=== PATIENT | female | born 1955 | race African-American/Black ===

== ENCOUNTER 2018-05-27 20:12 | Inpatient (IN) | payer MEDICAID ==
[2018-05-27] VITALS (15 sets, daily range): O2SAT 69–100
[~2018-05-27] VITALS: Ht 172.7 cm; Wt 81.0 kg
[2018-05-27 21:29] LABS: BASO # 0.1 (0.0-0.2); BASO % 0.8 % (0.0-2.0); EOS # 0.1 (0.0-0.7); EOS % 1.3 % (0-4.0); GRAN # 6.2 (1.4-6.5); GRAN % 67.6 % (42.2-75.2); HEMOGLOBIN 11.4 g/dl (12.5-16.0); LYMPH # 1.7 (1.2-3.4); LYMPH % 18.4 % (20.0-51.0); MEAN CELL VOLUME 87 fl (80.0-100.0); MEAN CORPUSCULAR HEMOGLOBIN 28 pg (27.0-31.0); MEAN CORPUSCULAR HGB CONC 32 g/dl (33.0-37.0); MEAN PLATELET VOLUME 11.7 fl (7.4-10.4); MONO # 1.1 (0.1-0.6); MONO % 11.4 % (1.7-9.3); PLATELET COUNT 183 K/mm3 (130-400); RED BLOOD COUNT 4.14 M/mm3 (4.10-5.30); REDCELL DISTRIBUTION WIDTH-CV 14.4 % (11.5-14.5)
[2018-05-27] MEDS ORDERED: NEURONTIN100 MG/CAP PO (21:32)
[2018-05-27] MEDS ORDERED: PEPCID 20MG TAB20 MG PO (21:32)
[2018-05-27 21:33] LABS: INR 1.2 (0.8-3.0); PROTHROMBIN TIME 13.1 SECONDS (9.7-12.8)
[2018-05-27] MEDS ORDERED: MACROBID 1100 MG/CAP PO (21:33)
[2018-05-27 21:34] LABS: HEMATOCRIT 36.1 % (37.0-47.0)
[2018-05-27] MEDS ORDERED: MYFORTIC180 MG PO (21:35)
[2018-05-27] MEDS ORDERED: PROGRAF 0.5MG0.5 MG PO (21:35)
[2018-05-27] MEDS ORDERED: ALDACTONE50 MG PO (21:35)
[2018-05-27 21:36] LABS: PARTIAL THROMBOPLASTIN TIME 31.1 SECONDS (26.0-37.0)
[2018-05-27] MEDS ORDERED: LOPRESSOR100 MG PO (21:36)
[2018-05-27] MEDS ORDERED: ZYRTEC 10MG10 MG PO (21:37)
[2018-05-27 21:39] LABS: ALBUMIN 3.5 gm/dL (3.5-5.0); BILIRUBIN,TOTAL 1.2 mg/dL (0.0-1.0); C-REACTIVE PROTEIN 0.8 mg/dL (0.0-0.9); CALCIUM 9.7 mg/dL (8.4-10.2); CREATININE, serum 1.65 mg/dL (0.52-1.25); POTASSIUM 4.7 mmol/L (3.4-5.0); TOTAL PROTEIN 7.6 gm/dL (6.4-8.2)
[2018-05-27 21:57] LABS: TROPONIN-I 0.037 ng/mL (0.000-0.035)
[2018-05-27 22:48] LABS: COLLECTION METHOD CLEAN CATCH
[2018-05-27 22:55] LABS: HYALINE CAST >12 /lpf; MUCOUS Present /lpf; PH 5 (5-8); URINE APPEARANCE Hazy; URINE BACTERIA Rare /hpf; URINE BILIRUBIN Negative (NEGATIVE); URINE BLOOD Negative (NEGATIVE); URINE COLOR Amber; URINE GLUCOSE 1+ (NEGATIVE); URINE KETONE Negative (NEGATIVE); URINE LEUKOCYTE ESTERASE Negative (NEGATIVE); URINE NITRATE Negative (NEGATIVE); URINE PROTEIN(semi-quant) 1+ (NEGATIVE); URINE RBC 0-2 /hpf; URINE UROBILINOGEN >=4.0 mg/dL (NEGATIVE)
--- NOTE | 2018-05-27 23:05 | NUR ---
RECEIVED REPORT VIA PHONE FROM GUS MARTINEZ.
--- NOTE | 2018-05-27 23:35 | NUR ---
PT ARRIVED IN UNIT VIA STRETCHER, ALERT AND ORIENTED X 4, ON ROOM AIR AND ABLE TO WALK FROM STRETCHER TO BED. PT ORIENTED TO ROOM, VISITATION POLICY AND HOW TO ORDER FOOD. PT DENIES PAIN AT THIS TIME, VS STABLE.
[2018-05-28] VITALS (369 sets, daily range): BP systolic 74–116; BP diastolic 39–67; PULSE 59–75; TEMP 98.2–98.7; O2SAT 69–100
[2018-05-28 02:14] LABS: TROPONIN-I 3 HR POST INITIAL 0.025 ng/mL (0.000-0.034)
[2018-05-28 02:33] LABS: TSH w REFLEX 0.831 uIU/mL (0.465-4.680)
[2018-05-28 03:09] LABS: BILIRUBIN,TOTAL 1.2 mg/dL (0.0-1.0); CALCIUM 8.9 mg/dL (8.4-10.2); CREATININE, serum 1.44 mg/dL (0.52-1.25); POTASSIUM 4.8 mmol/L (3.4-5.0); TOTAL PROTEIN 6.5 gm/dL (6.4-8.2)
[2018-05-28 04:46] LABS: BASO # 0.1 (0.0-0.2); BASO % 0.8 % (0.0-2.0); EOS # 0.1 (0.0-0.7); EOS % 1.5 % (0-4.0); GRAN % 60.7 % (42.2-75.2); LYMPH # 1.5 (1.2-3.4); LYMPH % 23.5 % (20.0-51.0); MEAN CELL VOLUME 89 fl (80.0-100.0); MEAN CORPUSCULAR HGB CONC 31 g/dl (33.0-37.0); MEAN PLATELET VOLUME 11.3 fl (7.4-10.4); MONO # 0.9 (0.1-0.6); MONO % 13.2 % (1.7-9.3); PLATELET COUNT 120 K/mm3 (130-400); RED BLOOD COUNT 3.56 M/mm3 (4.10-5.30); REDCELL DISTRIBUTION WIDTH-CV 14.5 % (11.5-14.5)
[2018-05-28 04:49] LABS: HEMATOCRIT 31.5 % (37.0-47.0); HEMOGLOBIN 9.9 g/dl (12.5-16.0); MEAN CORPUSCULAR HEMOGLOBIN 28 pg (27.0-31.0)
[2018-05-28 04:58] LABS: CALCIUM 8.7 mg/dL (8.4-10.2); CREATININE, serum 1.41 mg/dL (0.52-1.25); POTASSIUM 4.5 mmol/L (3.4-5.0)
[2018-05-28 05:08] LABS: TROPONIN-I 6 HR POST INITIAL 0.025 ng/mL (0.000-0.034)
--- NOTE | 2018-05-28 07:10 | NUR ---
REPORT GIVENT TO GUS WALKER.
--- NOTE | 2018-05-28 08:00 | NUR ---
INITIAL ASSESSMENT COMPLETED. PATIENT AWAKE AND ALERT. SHE WAS GIVEN CLEAN LINENS WELL GIVEN TOOTHBRUSH AND TOOTHPASTE. SHE WAS ABLE TO AMBULATE TO THE TOILET WITHOUT DIFFICULTY
--- NOTE | 2018-05-28 10:10 | NUR ---
DR. HOBBS AT BEDSIDE TO SEE PATIENT. HE PLANS TO START HER ON SOTOLOL AND THEN DO A LOOP RECORDER TOMORROW MORNING.
[2018-05-28] MEDS ORDERED: LANTUS100 U/ML SQ (10:56)
[2018-05-28] MEDS ORDERED: HUMALOG100 U/ML (10:57)
--- NOTE | 2018-05-28 12:11 | NUR ---
Patient lives at home with her niece in [place], [place] and plans to discharge back home with her niece upon discharge. Patient received a liver transplant in 2010 in [place], [place] and helps care for her neice's child while her niece is at work. Patient is mostly independent with daily living activities and also receives support as needed from her niece. Patient's primary care physician is Dr. Quirino Duke along with Dr. Mora at [facility], her pharmacy is unknown at this time, and she does not have advance directives on file at this time. Her niece is Osei and her contact number is [phone]. No further needs at this time and psychotherapist social worker will follow as needed.
--- NOTE | 2018-05-28 16:35 | NUR ---
PATIENT HAS BEEN SLEEPING OFF AND ON ALL DAY. SHE AMBULATES TO THE BATHROOM WITHOUT DIFFICULTY. FAMILY DID TAKE ALL MEDICATIONS HOME WITH THEM.
--- NOTE | 2018-05-28 17:00 | NUR ---
REPORT CALLED TO GUS BINGHAM ON MEDICAL. PATIENT WAS PLACED ON PORTABLE TELEMETRY AND TAKEN BY WHEELCHAIR TO ROOM 352. CALL LIGHT AND PHONE WERE GIVEN TO PATIENT. NURSE NOTIFIED OF PATIENT'S ARRIVAL.
--- NOTE | 2018-05-28 20:50 | NUR ---
Shift assessment complete. PT resting in bed, awake, a&o, cooperative c cares. Pt denies pain or any other c/o at this time. INT patent. PT s needs. Call light in reach, will monitor.
[2018-05-29 03:44] VITALS: BP 126/70; PULSE 70; TEMP 97.4
[2018-05-29 07:36] VITALS: BP 125/70; PULSE 71; TEMP 98.7
--- NOTE | 2018-05-29 09:24 | NUR ---
Pt sleeping in bed at this time; awaiting loop recorder placement. IVF infusing per orders without complication.
--- NOTE | 2018-05-29 10:31 | NUR ---
Loop recorder placed at bedside by Dr. De Guzman. Pt able to order breakfast. Denies needs at this time.
[2018-05-29 11:15] VITALS: BP 128/63; PULSE 67; TEMP 98.2
--- NOTE | 2018-05-29 12:03 | NUR ---
Initial visit; Patient thanked Public Affairs Officer for looking in on her and offering comfort and prayer.
[2018-05-29 16:08] VITALS: BP 131/61; PULSE 72; TEMP 98.7
--- NOTE | 2018-05-29 18:17 | NUR ---
PRN tylenol given for incision pain. Novolog given per orders. Denies further needs at this time; will continue to monitor.
--- NOTE | 2018-05-29 19:04 | NUR ---
Report given to GUS Alcala. Pt resting in bed.
[2018-05-29 19:09] VITALS: BP 105/47; PULSE 70; TEMP 98.5
--- NOTE | 2018-05-29 20:30 | NUR ---
Initial shift assessment done- no requests- has been sleeping, just wants to get some rest. Dressing to loop recorder site dry and intact. Tele on-sinus. INT to left wrist.
[2018-05-30 00:46] VITALS: BP 92/45; PULSE 63; TEMP 98.1
[2018-05-30 05:00] VITALS: BP 94/50; PULSE 65; TEMP 98.4
--- NOTE | 2018-05-30 05:34 | NUR ---
Quiet night- Tylenol given for pain to loop recorder site- dressing dry and intact, VSS
[2018-05-30 06:21] LABS: BASO % 0.6 % (0.0-2.0); EOS # 0.1 (0.0-0.7); EOS % 1.2 % (0-4.0); GRAN # 3.2 (1.4-6.5); GRAN % 63.2 % (42.2-75.2); HEMOGLOBIN 11.3 g/dl (12.5-16.0); LYMPH % 20.4 % (20.0-51.0); MEAN CELL VOLUME 86 fl (80.0-100.0); MEAN CORPUSCULAR HEMOGLOBIN 28 pg (27.0-31.0); MEAN CORPUSCULAR HGB CONC 33 g/dl (33.0-37.0); MEAN PLATELET VOLUME 11.9 fl (7.4-10.4); MONO # 0.7 (0.1-0.6); MONO % 14.2 % (1.7-9.3); PLATELET COUNT 96 K/mm3 (130-400); RED BLOOD COUNT 4.04 M/mm3 (4.10-5.30); REDCELL DISTRIBUTION WIDTH-CV 14.3 % (11.5-14.5)
[2018-05-30 06:27] LABS: HEMATOCRIT 34.8 % (37.0-47.0)
[2018-05-30 07:41] VITALS: BP 138/71; PULSE 72; TEMP 98.7
[2018-05-30 07:43] LABS: BILIRUBIN,TOTAL 1.9 mg/dL (0.0-1.0); CREATININE, serum 0.86 mg/dL (0.52-1.25); TOTAL PROTEIN 6.8 gm/dL (6.4-8.2)
--- NOTE | 2018-05-30 09:22 | NUR ---
Pt resting in bed with call light within reach. INT intact to left wrist. Loop recorder incision intact to left chest, clean, dry with gauze dressing in place. Ice provided for pain. Pt states it is improved with tylenol. Denies further needs at this time; will continue to monitor.
[2018-05-30] MEDS ORDERED: CEPHALEXIN500 M1 PO (09:58)
[2018-05-30] MEDS ORDERED: XARELTO20 MG PO (09:59)
[2018-05-30] MEDS ORDERED: BETAPACE 80MG80 MG PO (09:59)
--- NOTE | 2018-05-30 11:44 | NUR ---
Reviewed all discharge medications, instructions, and follow up appointments with patient. All questions answered in depth. INT and tele removed. All belongings sent with patient, including medications. Health summary printed and sent with pt for her appointment with Dr. Talavera tomorrow. Pt denies any needs; walked out to car. Pt discharges.
== END 2018-05-30 11:45 | disposition home or self-care (01) | DRG 261 ==
LOC: COL.ER 20:12 → MEDICAL 22:50 → ICU 22:50 → MEDICAL 05-28 17:22
PROVIDERS: Emergency Medicine; Nurse Practitioner; Physician Assistant; ADMIT Hospitalist
PROC: 0JH632Z Insertion of Monitoring Device into Chest Subcutaneous Tissue and Fascia, Percutaneous Approach (ICD-10-PCS; principal; 2018-05-29)
DX: I48.92 Unspecified atrial flutter (principal); Z94.4 Liver transplant status; N17.9 Acute kidney failure, unspecified; I10 Essential (primary) hypertension; E11.649 Type 2 diabetes mellitus with hypoglycemia without coma; D64.9 Anemia, unspecified
CPT/HCPCS: 99222-AI; 99233-AI; 99239; C1764; J1650; J1815; J7030; J7040; J7507

== ENCOUNTER 2018-06-24 15:20 | Emergency (ER) | payer MEDICAID | END 2018-06-24 20:14 | disposition home or self-care (01) | LOC: COL.ER 15:20 | DX: J06.9 Acute upper respiratory infection, unspecified (principal); R10.12 Left upper quadrant pain; R11.10 Vomiting, unspecified; Z79.01 Long term (current) use of anticoagulants ==

== ENCOUNTER 2018-07-05 09:52 | Emergency (ER) | payer MEDICAID ==
[~2018-07-05] VITALS: Ht 172.7 cm; Wt 73.6 kg
[~2018-07-05 09:52] MED LIST: ALDACTONE50 MG PO; BETAPACE 80MG80 MG PO; CEPHALEXIN500 M1 PO; HUMALOG100 U/ML; LANTUS100 U/ML SQ; LOPRESSOR100 MG PO; MACROBID 1100 MG/CAP PO; MYFORTIC180 MG PO; NEURONTIN100 MG/CAP PO; PEPCID 20MG TAB20 MG PO; PHENERGAN 25 TA25 MG PO; PROGRAF 0.5MG0.5 MG PO; XARELTO20 MG PO; ZYRTEC 10MG10 MG PO
[2018-07-05 10:41] LABS: BASO % 0.2 % (0.0-2.0); EOS # 0.1 (0.0-0.7); EOS % 0.8 % (0-4.0); GRAN % 72.4 % (42.2-75.2); HEMOGLOBIN 10.5 g/dl (12.5-16.0); LYMPH # 1.6 (1.2-3.4); LYMPH % 16.4 % (20.0-51.0); MEAN CELL VOLUME 85 fl (80.0-100.0); MEAN CORPUSCULAR HEMOGLOBIN 27 pg (27.0-31.0); MEAN CORPUSCULAR HGB CONC 32 g/dl (33.0-37.0); MEAN PLATELET VOLUME 12.2 fl (7.4-10.4); MONO % 9.9 % (1.7-9.3); PLATELET COUNT 132 K/mm3 (130-400); RED BLOOD COUNT 3.84 M/mm3 (4.10-5.30); REDCELL DISTRIBUTION WIDTH-CV 13.7 % (11.5-14.5)
[2018-07-05 10:42] LABS: HEMATOCRIT 32.5 % (37.0-47.0)
[2018-07-05 10:48] LABS: PARTIAL THROMBOPLASTIN TIME 53.6 SECONDS (26.0-37.0)
[2018-07-05 10:51] LABS: INR 7.3 (0.8-3.0); PROTHROMBIN TIME 83.5 SECONDS (9.7-12.8)
[2018-07-05 11:05] LABS: LACTIC ACID 1.5 mmol/L (0.4-2.0)
[2018-07-05 11:07] LABS: ALBUMIN 3.4 gm/dL (3.5-5.0); BILIRUBIN,TOTAL 1.3 mg/dL (0.0-1.0); C-REACTIVE PROTEIN 2.4 mg/dL (0.0-0.9); CALCIUM 9.9 mg/dL (8.4-10.2); CREATININE, serum 0.87 mg/dL (0.52-1.25); POTASSIUM 4.5 mmol/L (3.4-5.0); TOTAL PROTEIN 7.6 gm/dL (6.4-8.2)
[2018-07-05 11:15] LABS: COLLECTION METHOD CLEAN CATCH
[2018-07-05 11:22] LABS: MUCOUS Present /lpf; PH 5 (5-8); URINE APPEARANCE Clear; URINE BACTERIA None Seen /hpf; URINE BILIRUBIN Negative (NEGATIVE); URINE BLOOD Negative (NEGATIVE); URINE COLOR Yellow; URINE GLUCOSE 3+ (NEGATIVE); URINE KETONE Negative (NEGATIVE); URINE LEUKOCYTE ESTERASE Negative (NEGATIVE); URINE NITRATE Negative (NEGATIVE); URINE PROTEIN(semi-quant) Negative (NEGATIVE); URINE RBC 0-2 /hpf; URINE UROBILINOGEN >=4.0 mg/dL (NEGATIVE)
[2018-07-05] MEDS ORDERED: PROGRAF 0.5MG0.5 MG PO (11:40)
[2018-07-05] MEDS ORDERED: TOPROL XL100 MG PO (11:41)
[2018-07-05] MEDS ORDERED: MACROBID 1100 MG/CAP PO (11:43)
[2018-07-05] MEDS ORDERED: TAMIFLU 75MG75 MG PO (11:52)
[2018-07-05 15:15] VITALS: BP 126/80; PULSE 68; TEMP 96.8
== END 2018-07-05 15:15 | disposition short-term general hospital (02) ==
LOC: COL.ER 09:52
PROVIDERS: Emergency Medicine
DX: K72.90 Hepatic failure, unspecified without coma (principal); D68.59 Other primary thrombophilia; R41.0 Disorientation, unspecified; E11.9 Type 2 diabetes mellitus without complications; I10 Essential (primary) hypertension; I48.92 Unspecified atrial flutter; Z79.4 Long term (current) use of insulin; Z94.4 Liver transplant status; Z90.710 Acquired absence of both cervix and uterus
CPT/HCPCS: J2270

== ENCOUNTER 2018-08-17 19:12 | Inpatient (IN) | payer MEDICAID ==
[~2018-08-17] VITALS: Ht 172.7 cm; Wt 85.8 kg
[~2018-08-17 19:12] MED LIST changes: +TAMIFLU 75MG75 MG PO; +TOPROL XL100 MG PO
[2018-08-17 20:22] LABS: BASO # 0.1 (0.0-0.2); BASO % 0.5 % (0.0-2.0); EOS # 0.1 (0.0-0.7); GRAN # 9.3 (1.4-6.5); GRAN % 68.1 % (42.2-75.2); LYMPH # 2.6 (1.2-3.4); LYMPH % 18.8 % (20.0-51.0); MEAN CELL VOLUME 88 fl (80.0-100.0); MEAN CORPUSCULAR HGB CONC 30 g/dl (33.0-37.0); MEAN PLATELET VOLUME 11.3 fl (7.4-10.4); MONO # 1.5 (0.1-0.6); MONO % 11.2 % (1.7-9.3); PLATELET COUNT 221 K/mm3 (130-400); RED BLOOD COUNT 2.18 M/mm3 (4.10-5.30); REDCELL DISTRIBUTION WIDTH-CV 14.6 % (11.5-14.5)
[2018-08-17 20:30] LABS: HEMATOCRIT 19.2 % (37.0-47.0); HEMOGLOBIN 5.8 g/dl (12.5-16.0); MEAN CORPUSCULAR HEMOGLOBIN 27 pg (27.0-31.0)
[2018-08-17 20:33] LABS: ALANINE AMINOTRANSFERASE 23 U/L (9-52); ALBUMIN 3.2 gm/dL (3.5-5.0); ALKALINE PHOSPHATASE 119 U/L (50-136); ANION GAP 10 mmol/L (7-16); AST,SGOT 40 U/L (15-37); BLOOD UREA NITROGEN 53 mg/dL (7-17); C-REACTIVE PROTEIN 0.9 mg/dL (0.0-0.9); CALCIUM 9.3 mg/dL (8.4-10.2); CARBON DIOXIDE 19 mmol/L (22-30); CHLORIDE 108 mmol/L (98-107); CREATININE, serum 1.58 (0.52-1.25); GLUCOSE 70 mg/dL (74-106); POTASSIUM 4.1 mmol/L (3.4-5.0); SODIUM 138 mmol/L (137-145); TOTAL PROTEIN 6.9 gm/dL (6.4-8.2)
[2018-08-17 20:43] LABS: TROPONIN-I < 0.012 ng/mL (0.000-0.035)
[2018-08-17 20:56] LABS: PARTIAL THROMBOPLASTIN TIME 42.2 SECONDS (26.0-37.0)
[2018-08-17] MEDS ORDERED: PEPCID 20MG TAB20 MG PO (21:13)
[2018-08-17 21:51] LABS: INR 4.4 (0.8-3.0)
[2018-08-17 21:59] LABS: PROTHROMBIN TIME 50.1 SECONDS (9.7-12.8)
--- NOTE | 2018-08-17 22:40 | NUR ---
Report called at this time from the ED by GUS Aceves. Patient will be brought over soon.
[2018-08-17 22:42] LABS: MEAN CELL VOLUME 87 fl (80.0-100.0); MEAN CORPUSCULAR HGB CONC 30 g/dl (33.0-37.0); MEAN PLATELET VOLUME 10.8 fl (7.4-10.4); PLATELET COUNT 183 K/mm3 (130-400); RED BLOOD COUNT 1.97 M/mm3 (4.10-5.30); REDCELL DISTRIBUTION WIDTH-CV 14.8 % (11.5-14.5)
[2018-08-17 22:52] LABS: HEMATOCRIT 17.2 % (37.0-47.0); HEMOGLOBIN 5.2 g/dl (12.5-16.0); MEAN CORPUSCULAR HEMOGLOBIN 26 pg (27.0-31.0)
--- NOTE | 2018-08-17 23:23 | NUR ---
Patient arrives from the ED at this time via stretcher with clothes and cell phone. Patient stands and transfers self to unit bed and is slightly unsteady. Complains of headache getting worse when she stands and feels lightheaded. Attached to monitoring equipment. Assessment complete. Patient has an audible murmur with her tachycardic heart rate, her lungs are clear with diminished bases. Patient has complaints of a 9/10 headache that is sharp and constant. She is alert and oriented. Blood consent signed. Patient now resting in bed. She is drowsy and falls asleep easily, but awakens to name. Oriented to room and unit. Call light within reach. Will continue to monitor.
[2018-08-18] VITALS (21 sets, daily range): BP systolic 83–122; BP diastolic 37–79; PULSE 81–116; TEMP 97.6–98.4; O2SAT 100
[2018-08-18] MEDS ORDERED: PROVENTIL0.09 MG/A1 IH (00:28)
[2018-08-18 04:00] LABS: HEMOGLOBIN 6.8 g/dl (12.5-16.0)
--- NOTE | 2018-08-18 04:00 | NUR ---
Patient resting in bed, sleeps frequently but is disrupted often. Patient's BP remains low, continuing transfusions. Patient has complaints of pain in her abdomen now, rated 8/10 and cramping, worse with movement. Assisted to reposition. Patient is still not able to receive pain medications at this time due to low blood pressures. Patient's heart rate has started to decrease and has been maintaining below 100. Assessment complete. No changes from previous. No further needs at this time. Will continue to monitor. Call light within reach.
[2018-08-18 05:34] LABS: BASO # 0.1 (0.0-0.2); BASO % 0.5 % (0.0-2.0); EOS # 0.1 (0.0-0.7); EOS % 0.7 % (0-4.0); GRAN # 6.6 (1.4-6.5); GRAN % 68.7 % (42.2-75.2); HEMATOCRIT 25.2 % (37.0-47.0); HEMOGLOBIN 8.2 g/dl (12.5-16.0); LYMPH # 1.9 (1.2-3.4); LYMPH % 19.4 % (20.0-51.0); MEAN CELL VOLUME 86 fl (80.0-100.0); MEAN CORPUSCULAR HEMOGLOBIN 28 pg (27.0-31.0); MEAN CORPUSCULAR HGB CONC 33 g/dl (33.0-37.0); MONO % 10.3 % (1.7-9.3); PLATELET COUNT 129 K/mm3 (130-400); RED BLOOD COUNT 2.93 M/mm3 (4.10-5.30); REDCELL DISTRIBUTION WIDTH-CV 14.1 % (11.5-14.5)
[2018-08-18 05:38] LABS: INR 3.4 (0.8-3.0); PROTHROMBIN TIME 38.3 SECONDS (9.7-12.8)
[2018-08-18 05:45] LABS: CREATININE, serum 1.43 (0.52-1.25)
[2018-08-18 05:52] LABS: POTASSIUM 6.4 mmol/L (3.4-5.0)
--- NOTE | 2018-08-18 07:18 | NUR ---
Bedside report given to GUS Mills and Peggy student nurse.
[2018-08-18 09:15] LABS: CALCIUM 8.1 mg/dL (8.4-10.2); CREATININE, serum 1.42 (0.52-1.25); POTASSIUM 4.4 mmol/L (3.4-5.0)
[2018-08-18 09:20] LABS: HEMOGLOBIN 7.8 g/dl (12.5-16.0)
--- NOTE | 2018-08-18 11:08 | NUR ---
Patient leaves for EGD in the OR at this time. Patient is transported to OR by tech. Emre
--- NOTE | 2018-08-18 12:01 | NUR ---
PATIENT RETURNS FROM OR WITH OR NURSE. PATIENT IS ALERT, ORIENTED AND VITAL SIGNS ARE STABLE. PATIENT IS NOT IN OBVIOUS PAIN OR DISCOMFORT. WILL CONTINUE TO MONITOR VITALS. PATIENT WILL REMAIN NPO UNTIL FURTHER TREATMENT PLANS ARE DISCUSSED WITH THE DOCTOR.
--- NOTE | 2018-08-18 14:16 | NUR ---
PHOENIX student met with patient to discuss discharge plan. Also present was patient's sister and brother. Patient lives in [place] with her niece (Osei). Patient's PCP is Dr. Duke and she uses the [facility]. Patient does not use any DME but needs occasional help with bathing using the restroom. Niece is able to provide assistance when available. Patient does not currently have a DPOA-HC completed but was interested in completing one while here. HPOENIX student provided and explained form. Patient designated her niece (Osei) as primary and signed. PHOENIX student placed copy in chart and returned original +3 copies to patient. Patient and patient's sister inquired about wanting home health services. PT/OT have been ordered. PHOENIX to follow PT/OT recommendations for appropiate services. PHOENIX to continue to follow.
[2018-08-18 14:57] LABS: COLLECTION METHOD CLEAN CATCH
[2018-08-18 15:07] LABS: PH 5 (5-8); SQUAMOUS EPITHELIAL 0-2 /hpf; URINE APPEARANCE Clear; URINE BACTERIA None Seen /hpf; URINE BILIRUBIN Negative (NEGATIVE); URINE BLOOD Negative (NEGATIVE); URINE COLOR Yellow; URINE GLUCOSE Negative (NEGATIVE); URINE KETONE Negative (NEGATIVE); URINE LEUKOCYTE ESTERASE Negative (NEGATIVE); URINE NITRATE Negative (NEGATIVE); URINE PROTEIN(semi-quant) Negative (NEGATIVE); URINE RBC 0-2 /hpf
--- NOTE | 2018-08-18 18:00 | NUR ---
PATIENT PROCEEDS WITH CLEAR LIQUIDS THIS AFTERNOON. SHE HAS SOME MILD NAUSEA, ZOFRAN GIVEN, AND LOWER ABDOMINAL CRAMPING. K-PAD HEATING PAD ADMINISTERED TO THE PATIENT WITH SOME REPORTS OF RELIEF. WILL CONTINUE TO MONITOR.
[2018-08-18 18:45] LABS: HEMATOCRIT 24.8 % (37.0-47.0); HEMOGLOBIN 8.1 g/dl (12.5-16.0)
--- NOTE | 2018-08-18 19:10 | NUR ---
Bedside report received from GUS Mills and Peggy student nurse
--- NOTE | 2018-08-18 20:00 | NUR ---
Assessment complete. Patient is sitting up in bed and does not appear to be in any distress. patient has complaints of her feet being itchy. Provided some lotion. assessment does not reveal any significant findings.Vitals remain stable. No further needs at this time. Will continue to monitor. Call light within reach
[2018-08-19] VITALS: BP 122/73; PULSE 75; TEMP 98.2
--- NOTE | 2018-08-19 | NUR ---
Assessment complete. Patient resting in bed after getting up to the commode. Linens changed. Patient's assessment revealed no changes from previous. Patient has no further needs at this time. States that she is very tired and just wants to sleep.
[2018-08-19 04:00] VITALS: BP 100/62; PULSE 76; TEMP 98.1
--- NOTE | 2018-08-19 04:00 | NUR ---
Patient asleep at this time. No current complaints or needs. Vitals have remained stable throughout the night. Assessment complete. No changes from previous exams. No further needs at this time. Will continue to monitor. Call light within reach
[2018-08-19 05:01] LABS: BASO % 0.7 % (0.0-2.0); EOS # 0.1 (0.0-0.7); EOS % 1.7 % (0-4.0); GRAN # 3.8 (1.4-6.5); GRAN % 63.9 % (42.2-75.2); LYMPH # 1.3 (1.2-3.4); LYMPH % 22.7 % (20.0-51.0); MEAN CELL VOLUME 87 fl (80.0-100.0); MEAN CORPUSCULAR HGB CONC 32 g/dl (33.0-37.0); MONO # 0.6 (0.1-0.6); MONO % 10.7 % (1.7-9.3); PLATELET COUNT 106 K/mm3 (130-400); RED BLOOD COUNT 2.68 M/mm3 (4.10-5.30); REDCELL DISTRIBUTION WIDTH-CV 15.6 % (11.5-14.5)
[2018-08-19 05:07] LABS: HEMATOCRIT 23.2 % (37.0-47.0); HEMOGLOBIN 7.5 g/dl (12.5-16.0); MEAN CORPUSCULAR HEMOGLOBIN 28 pg (27.0-31.0)
[2018-08-19 05:09] LABS: CALCIUM 7.8 mg/dL (8.4-10.2); CREATININE, serum 1.43 (0.52-1.25); POTASSIUM 4.7 mmol/L (3.4-5.0)
[2018-08-19 07:10] LABS: INR 1.7 (0.8-3.0); PROTHROMBIN TIME 18.9 SECONDS (9.7-12.8)
--- NOTE | 2018-08-19 07:45 | NUR ---
Bedside report received from GUS Galvez.
--- NOTE | 2018-08-19 07:45 | NUR ---
Bedside report given to GUS Neal
--- NOTE | 2018-08-19 08:00 | NUR ---
Assessment completed. Pt resting in bed, easily arousable. Denies any pain at this time. VSS. Remains on octreotide gtt at 50ml/hr and IVF. Request chicken broth for breakfast. Call light in reach. Will monitor.
[2018-08-19 08:17] VITALS: BP 115/60; PULSE 81; TEMP 98.3
--- NOTE | 2018-08-19 10:39 | NUR ---
Report given to Yolis, janitor.
--- NOTE | 2018-08-19 10:50 | NUR ---
Pt transferred to room 342 via wheelchair. Pt walked to bed with steady gait. GUS Lagos at bedside. Pt's belongings in closet in room.
[2018-08-19 12:37] VITALS: BP 135/77; PULSE 67; TEMP 98.3
[2018-08-19 15:32] VITALS: BP 132/70; PULSE 72; TEMP 98.8
[2018-08-19 18:31] LABS: HEMATOCRIT 25.1 % (37.0-47.0)
--- NOTE | 2018-08-19 18:31 | NUR ---
Patient in bed eating supper. Tolerating intake well. Denies pain, nausea/vomiting. Denies further needs at this time. Will report off to warehouse supervisor 3rd shift.
[2018-08-19 20:51] VITALS: BP 129/75; PULSE 71; TEMP 99
--- NOTE | 2018-08-19 23:13 | NUR ---
Patient resting well in bed. Fluids running to right IJ. Denies pain. Requests and recieved warm blankets. Educated on using the hat in her bathroom to collect specimen for stool. Denies further needs.
[2018-08-20 01:10] VITALS: BP 116/65; PULSE 72; TEMP 98.8
[2018-08-20 03:59] VITALS: BP 120/67; PULSE 66; TEMP 98.7
--- NOTE | 2018-08-20 05:56 | NUR ---
Patient has rested well throughout the night. Denies pain. Denies any further needs.
--- NOTE | 2018-08-20 06:53 | NUR ---
Report given to GUS Ivey.
[2018-08-20 07:49] LABS: BASO # 0.1 (0.0-0.2); BASO % 0.7 % (0.0-2.0); EOS # 0.1 (0.0-0.7); EOS % 1.9 % (0-4.0); GRAN # 5.2 (1.4-6.5); GRAN % 70.8 % (42.2-75.2); LYMPH # 1.2 (1.2-3.4); LYMPH % 16.5 % (20.0-51.0); MEAN CELL VOLUME 90 fl (80.0-100.0); MEAN CORPUSCULAR HGB CONC 31 g/dl (33.0-37.0); MEAN PLATELET VOLUME 11.1 fl (7.4-10.4); MONO # 0.7 (0.1-0.6); MONO % 9.8 % (1.7-9.3); PLATELET COUNT 144 K/mm3 (130-400); RED BLOOD COUNT 2.91 M/mm3 (4.10-5.30); REDCELL DISTRIBUTION WIDTH-CV 15.4 % (11.5-14.5)
[2018-08-20 07:57] LABS: HEMATOCRIT 26.1 % (37.0-47.0); MEAN CORPUSCULAR HEMOGLOBIN 27 pg (27.0-31.0)
--- NOTE | 2018-08-20 08:45 | NUR ---
Patient alert and oriented, answers questions appropriately. See assessment. Abdomen soft, non tender, non distended. Bowel sounds active x4 quads. +Flatus. No bowel movement. No c/o at this time.
[2018-08-20 08:53] VITALS: BP 130/74; PULSE 66; TEMP 98.6
[2018-08-20 10:56] LABS: ALBUMIN 2.5 gm/dL (3.5-5.0); BILIRUBIN,TOTAL 1.2 mg/dL (0.0-1.0); CALCIUM 8.1 mg/dL (8.4-10.2); CREATININE, serum 1.39 (0.52-1.25); POTASSIUM 4.5 mmol/L (3.4-5.0); TOTAL PROTEIN 5.8 gm/dL (6.4-8.2)
[2018-08-20 12:15] VITALS: BP 143/73; PULSE 65; TEMP 98.6
[2018-08-20 15:33] VITALS: BP 135/75; PULSE 67; TEMP 98
[2018-08-20 20:28] VITALS: BP 154/73; PULSE 75; TEMP 99.2
--- NOTE | 2018-08-20 23:06 | NUR ---
Completed assessment and medication administration; PT tolerated all cares well; New order for Benadryl 25mg PO Q4H PRN for itching; PT A&Ox4, BS hyperactive, IND in room, NS running to IJ at 100ml/hr; No further assessed complaints or concerns at time of exit; PT able to IND return to comfortable position in bed with personal items and call light within reach; Will continue to monitor. CDA
[2018-08-21] VITALS (7 sets, daily range): BP systolic 117–160; BP diastolic 56–76; PULSE 71–102; TEMP 98.2–99.7
--- NOTE | 2018-08-21 01:32 | NUR ---
PT resting well in bed; IVs running to 2 lumen per orders; NS running at 100ml/hr; No further assessed concerns at time of rounds; Will continue to monitor. CDA
[2018-08-21 06:57] LABS: BASO % 0.3 % (0.0-2.0); EOS # 0.1 (0.0-0.7); EOS % 1.5 % (0-4.0); GRAN # 5.9 (1.4-6.5); GRAN % 63.6 % (42.2-75.2); LYMPH % 21.9 % (20.0-51.0); MEAN CELL VOLUME 88 fl (80.0-100.0); MEAN CORPUSCULAR HGB CONC 31 g/dl (33.0-37.0); MEAN PLATELET VOLUME 10.5 fl (7.4-10.4); MONO # 1.2 (0.1-0.6); MONO % 12.5 % (1.7-9.3); PLATELET COUNT 162 K/mm3 (130-400); RED BLOOD COUNT 2.95 M/mm3 (4.10-5.30); REDCELL DISTRIBUTION WIDTH-CV 15.4 % (11.5-14.5)
[2018-08-21 06:59] LABS: INR 1.3 (0.8-3.0); PROTHROMBIN TIME 15.2 SECONDS (9.7-12.8)
[2018-08-21 07:01] LABS: HEMATOCRIT 25.8 % (37.0-47.0); HEMOGLOBIN 8.1 g/dl (12.5-16.0); MEAN CORPUSCULAR HEMOGLOBIN 27 pg (27.0-31.0)
[2018-08-21 07:04] LABS: CREATININE, serum 1.22 (0.52-1.25); POTASSIUM 3.9 mmol/L (3.4-5.0)
--- NOTE | 2018-08-21 07:15 | NUR ---
Report given to GUS Paez; No significant changes or concerns during shift change. CDA
--- NOTE | 2018-08-21 08:00 | NUR ---
PATIENT IS ORIENTED BUT DROWSY. NPO FOR SONO TODAY. AM BS WAS 59. GAVE DEXTROSE FROM HYPOGLYCEMIC PROTOCOL. BS RECHECK WAS 95. PATIENT ASYMPTOMATIC. VSS. PATIENT WANTS TO COMPLETE SONO SO SHE CAN EAT. IV FLUIDS INFUSING INTO RIGHT IJ. NO C/O N/V. HBG-7.9. PATIENT IS ASYMPTOMATIC CURRENTLY. SHE RECEIVED 3 UNITS OF PRBC 08/19. HEAD TO TOE ASSESSMENT COMPLETE. CALL LIGHT IN REACH.
--- NOTE | 2018-08-21 08:10 | NUR ---
SONO TECH AT BEDSIDE.
--- NOTE | 2018-08-21 10:00 | NUR ---
HOSPITALIST CARE TEAM ROUNDING. SEE ORDERS.
--- NOTE | 2018-08-21 10:13 | NUR ---
SW attended clinical rounds. Patients has been seen by PT/OT but not since evaluation. SW will monitor PT/OT notes and follow up with patient if any recommendations are made.
--- NOTE | 2018-08-21 11:50 | NUR ---
PATIENT C/O RIGHT SIDE ABDOMINAL PAIN. NOTED LOW GRADE TEMP OF 99.5. ENCOURAGED PATIENT TO TAKE OFF ALL HER BLANKETS. ROOM TEMP TURNED DOWN. TYLENOL ON HOLD. WILL MONITOR.
[2018-08-21 14:23] LABS: PERITONEAL -POLYMORPHONUCLEAR 18.6 % (0-25); PERITONEAL FLUID RBC 0 /mm3 (0-0)
--- NOTE | 2018-08-21 20:00 | NUR ---
REPORT RECEIVED. ASSUMED CARE OF PATIENT FOR OR NURSE MANAGER. A&OX3. ASSESSMENT COMPLETE. VS STABLE. LAST GLUCOSE READING [id number]. DENIES PAIN AT THIS TIME. STATES "IM JUST REALLY TIRED." HS MEDS GIVEN. R JUGULAR IV FLUSHED WITHOUT DIFFICULTY. DENIES N/V. NO QUESTIONS OR CONCERNS VOICED. CALL LIGHT WITHIN REACH. BED IN LOW POSITION. WHEELS LOCKED. WILL MONITOR.
[2018-08-22 00:14] VITALS: BP 126/60; PULSE 69; TEMP 98.6
[2018-08-22 03:15] VITALS: BP 122/67; PULSE 64; TEMP 98.6
[2018-08-22 05:51] LABS: BASO % 0.4 % (0.0-2.0); EOS # 0.1 (0.0-0.7); EOS % 1.5 % (0-4.0); GRAN % 67.2 % (42.2-75.2); LYMPH # 1.4 (1.2-3.4); LYMPH % 18.9 % (20.0-51.0); MEAN CELL VOLUME 86 fl (80.0-100.0); MEAN CORPUSCULAR HGB CONC 32 g/dl (33.0-37.0); MONO # 0.9 (0.1-0.6); MONO % 11.9 % (1.7-9.3); PLATELET COUNT 124 K/mm3 (130-400); RED BLOOD COUNT 2.89 M/mm3 (4.10-5.30)
[2018-08-22 05:54] LABS: HEMATOCRIT 24.9 % (37.0-47.0); HEMOGLOBIN 7.9 g/dl (12.5-16.0); MEAN CORPUSCULAR HEMOGLOBIN 27 pg (27.0-31.0)
[2018-08-22 05:59] LABS: ALBUMIN 2.4 gm/dL (3.5-5.0); CREATININE, serum 1.09 (0.52-1.25); POTASSIUM 3.9 mmol/L (3.4-5.0); TOTAL PROTEIN 5.6 gm/dL (6.4-8.2)
[2018-08-22 06:19] LABS: INR 1.5 (0.8-3.0); PROTHROMBIN TIME 16.7 SECONDS (9.7-12.8)
--- NOTE | 2018-08-22 06:58 | NUR ---
REPORT GIVEN TO GUS SIERRA
[2018-08-22 07:13] VITALS: BP 134/66; PULSE 69; TEMP 99
--- NOTE | 2018-08-22 08:00 | NUR ---
Patient in bed resting. Alert and oriented x 3. Shift assessment complete. Denies pain at this time. Patient ordering breakfast. Fluids infusing via pump to right IJ. Independent in room. Denies further needs at this time.
[2018-08-22 11:06] VITALS: BP 115/60; PULSE 62; TEMP 99
[2018-08-22] MEDS ORDERED: TAMBOCOR 1100 MG/TAB PO (14:27)
[2018-08-22] MEDS ORDERED: TENORMIN 2525 MG/TAB PO (14:27)
[2018-08-22] MEDS ORDERED: LASIX 40MG TABL40 MG PO (14:28)
[2018-08-22] MEDS ORDERED: ALDACTONE 100M100 MG PO (14:28)
[2018-08-22] MEDS ORDERED: PROTONIX 40MG T40 MG PO (14:33)
[2018-08-22] MEDS ORDERED: ASPIRIN E.C. 8181 MG PO (14:39)
[2018-08-22 15:23] VITALS: BP 132/64; PULSE 61; TEMP 98.9
--- NOTE | 2018-08-22 17:00 | NUR ---
Right IJ discontinued by Nasim WEBER. Discharge instructions provided to patient. Patient educated on signs and symptoms of infection. Educated on maintaining follow up appointments. Denies Pain at this time. Denies further needs at this time. Patient waiting for her ride.
--- NOTE | 2018-08-22 17:15 | NUR ---
Patient ambulated out with surgical staff.
== END 2018-08-22 17:30 | disposition home or self-care (01) | DRG 441 ==
LOC: COL.ER 19:12 → SURG 22:18 → ICU 22:18 → SURG 08-19 11:12
PROVIDERS: Emergency Medicine; Internal Medicine; Internal Medicine Gastroenterology; Nurse Practitioner; Nurse Practitioner Family; ADMIT Hospitalist
PROC: 0DJ08ZZ Inspection of Upper Intestinal Tract, Via Natural or Artificial Opening Endoscopic (ICD-10-PCS; principal; 2018-08-18 10:30)
PROC: 0W9G3ZX Drainage of Peritoneal Cavity, Percutaneous Approach, Diagnostic (ICD-10-PCS; 2018-08-21)
DX: K76.6 Portal hypertension (principal); I85.11 Secondary esophageal varices with bleeding; K25.4 Chronic or unspecified gastric ulcer with hemorrhage; Z94.4 Liver transplant status; D62 Acute posthemorrhagic anemia; E87.2 Acidosis; N17.9 Acute kidney failure, unspecified; K70.31 Alcoholic cirrhosis of liver with ascites; F10.11 Alcohol abuse, in remission; I48.0 Paroxysmal atrial fibrillation; E11.649 Type 2 diabetes mellitus with hypoglycemia without coma; I10 Essential (primary) hypertension; Z79.4 Long term (current) use of insulin; Z87.891 Personal history of nicotine dependence; E87.5 Hyperkalemia; Z79.01 Long term (current) use of anticoagulants; I95.9 Hypotension, unspecified; D69.6 Thrombocytopenia, unspecified
CPT/HCPCS: 99223-AI; 99232-AI; 99233-AI; 99239; C9113; J0330; J1815; J2354; J2405; J2704; J3010; J7030; J7040; J7042; J7507; J7517; P9016

== ENCOUNTER 2018-10-14 10:16 | Inpatient (IN) | payer MEDICAID ==
[2018-10-14] VITALS (451 sets, daily range): BP systolic 111–116; BP diastolic 62; PULSE 79–81; TEMP 98–98.7; O2SAT 79–100
[~2018-10-14] VITALS: Ht 172.7 cm; Wt 63.9 kg
[~2018-10-14 10:16] MED LIST changes: +ALDACTONE 100M100 MG PO; +ASPIRIN E.C. 8181 MG PO; +LASIX 40MG TABL40 MG PO; +PROTONIX 40MG T40 MG PO; +PROVENTIL0.09 MG/A1 IH; +TAMBOCOR 1100 MG/TAB PO; +TENORMIN 2525 MG/TAB PO
[2018-10-14 11:17] LABS: BASO # 0.1 (0.0-0.2); BASO % 0.6 % (0.0-2.0); EOS % 0.4 % (0-4.0); GRAN # 7.5 (1.4-6.5); GRAN % 82.7 % (42.2-75.2); HEMOGLOBIN 10.3 g/dl (12.5-16.0); LYMPH # 0.9 (1.2-3.4); LYMPH % 9.5 % (20.0-51.0); MEAN CELL VOLUME 82 fl (80.0-100.0); MEAN CORPUSCULAR HEMOGLOBIN 25 pg (27.0-31.0); MEAN CORPUSCULAR HGB CONC 30 g/dl (33.0-37.0); MONO # 0.6 (0.1-0.6); MONO % 6.6 % (1.7-9.3); PLATELET COUNT 154 K/mm3 (130-400); REDCELL DISTRIBUTION WIDTH-CV 16.3 % (11.5-14.5)
[2018-10-14 11:19] LABS: INR 1.2 (0.8-3.0); PROTHROMBIN TIME 13.8 SECONDS (9.7-12.8)
[2018-10-14 11:20] LABS: HEMATOCRIT 34.5 % (37.0-47.0)
[2018-10-14 11:24] LABS: ALANINE AMINOTRANSFERASE 15 U/L (9-52); ALBUMIN 3.9 gm/dL (3.5-5.0); ALKALINE PHOSPHATASE 216 U/L (50-136); ANION GAP 17 mmol/L (7-16); AST,SGOT 29 U/L (15-37); BILIRUBIN,TOTAL 1.2 mg/dL (0.0-1.0); BLOOD UREA NITROGEN 38 mg/dL (7-17); CALCIUM 10.7 mg/dL (8.4-10.2); CARBON DIOXIDE 20 mmol/L (22-30); POTASSIUM 5.5 mmol/L (3.4-5.0); SODIUM 126 mmol/L (137-145); TOTAL PROTEIN 8.2 gm/dL (6.4-8.2)
[2018-10-14 11:27] LABS: LACTIC ACID 4.3 mmol/L (0.4-2.0)
[2018-10-14 11:31] LABS: ACETAMINOPHEN < 10 ug/mL (10-30); SALICYLATE < 1.0 mg/dL
[2018-10-14 11:33] LABS: CHLORIDE 89 mmol/L (98-107); GLUCOSE 1214 mg/dL (74-106)
[2018-10-14 11:40] LABS: TROPONIN-I < 0.012 ng/mL (0.000-0.035)
[2018-10-14 14:00] LABS: CALCIUM 10.7 mg/dL (8.4-10.2); CREATININE, serum 1.65 (0.52-1.25); POTASSIUM 5.3 mmol/L (3.4-5.0)
--- NOTE | 2018-10-14 16:15 | NUR ---
PATIENT ARRIVES TO ICU. SHE IS ABLE TO STAND AND MOVE TO ICU BED. SHE IS VERY CONFUSED AND NOT ABLE TO ANSWER MY QUESTIONS. PATIENT ATTACHED TO CARDIO-RESP MONITOR. LAB CALLED FOR DRAW. WILL CONTINUE TO MONITOR CLOSELY.
[2018-10-14 17:04] LABS: ALBUMIN 3.5 gm/dL (3.5-5.0); BILIRUBIN,TOTAL 0.9 mg/dL (0.0-1.0); CALCIUM 9.9 mg/dL (8.4-10.2); CREATININE, serum 1.52 (0.52-1.25); POTASSIUM 4.4 mmol/L (3.4-5.0); TOTAL PROTEIN 7.5 gm/dL (6.4-8.2)
--- NOTE | 2018-10-14 17:45 | NUR ---
CENTRAL LINE PLACED BY DR. RICARDO. PLACEMENT CONFIRMED VIA XRAY.
[2018-10-14 18:42] LABS: CALCIUM 9.8 mg/dL (8.4-10.2); CREATININE, serum 1.39 (0.52-1.25); POTASSIUM 4.1 mmol/L (3.4-5.0)
--- NOTE | 2018-10-14 18:49 | NUR ---
REPORT GIVEN TO GUS SEAMAN
--- NOTE | 2018-10-14 18:55 | NUR ---
Bedside report received from GUS Mills. Drips and lines reviewed. Transfer of care at this time.
--- NOTE | 2018-10-14 20:00 | NUR ---
Patient is sleeping upon entrance into the room. Awakens easily to name. Patient is alert but confused. Follows commands. Assessment complete. Assessment reveals clear lung sounds with diminished bases, patient does have a cough, but is not productive. HR and rhythm regular, patient does have an audible murmur. Bowel sounds are active x4. Patient has no complaints of pain at this time and would just like to rest. Vitals have remained stable. No further needs at this time. Will continue to monitor. Call light within reach.
[2018-10-14 20:56] LABS: CALCIUM 9.4 mg/dL (8.4-10.2); CREATININE, serum 1.33 (0.52-1.25); POTASSIUM 4.4 mmol/L (3.4-5.0)
[2018-10-14 22:41] LABS: CALCIUM 9.3 mg/dL (8.4-10.2); CREATININE, serum 1.32 (0.52-1.25); POTASSIUM 4.3 mmol/L (3.4-5.0)
[2018-10-15] VITALS (596 sets, daily range): BP systolic 105–130; BP diastolic 59–87; PULSE 63–74; TEMP 97.8–98.9; O2SAT 78–100
--- NOTE | 2018-10-15 | NUR ---
Patient asleep at this time. Awakens to name, follows commands, then quickly falls back asleep. Vitals have remained stable. No complaints of pain. Will continue to monitor glucose as ordered. No further needs. Will continue to monitor. Call light within reach.
[2018-10-15 01:15] LABS: CALCIUM 9.2 mg/dL (8.4-10.2); CREATININE, serum 1.27 (0.52-1.25); POTASSIUM 4.1 mmol/L (3.4-5.0)
[2018-10-15 02:56] LABS: CREATININE, serum 1.28 (0.52-1.25)
--- NOTE | 2018-10-15 04:00 | NUR ---
Patient awake at this time and requsting to use the bathroom. Assisted with cords and wires. Patient ambulates and is steady. Returns to bed without assistance. Patient has no current complaints of pain. Only states that her feet are "itchy". Vitals have remained stable. Patient has no other needs at this time. Will continue to monitor. Call light within reach.
[2018-10-15 05:15] LABS: BASO % 0.5 % (0.0-2.0); EOS # 0.1 (0.0-0.7); EOS % 1.6 % (0-4.0); GRAN % 65.8 % (42.2-75.2); LYMPH # 1.4 (1.2-3.4); LYMPH % 22.1 % (20.0-51.0); MEAN CORPUSCULAR HGB CONC 32 g/dl (33.0-37.0); MEAN PLATELET VOLUME 12.6 fl (7.4-10.4); MONO # 0.6 (0.1-0.6); MONO % 9.8 % (1.7-9.3); PLATELET COUNT 126 K/mm3 (130-400); RED BLOOD COUNT 3.09 M/mm3 (4.10-5.30); REDCELL DISTRIBUTION WIDTH-CV 15.8 % (11.5-14.5)
[2018-10-15 05:16] LABS: HEMATOCRIT 23.9 % (37.0-47.0); HEMOGLOBIN 7.6 g/dl (12.5-16.0); MEAN CELL VOLUME 77 fl (80.0-100.0); MEAN CORPUSCULAR HEMOGLOBIN 25 pg (27.0-31.0)
[2018-10-15 05:29] LABS: CALCIUM 8.9 mg/dL (8.4-10.2); CREATININE, serum 1.25 (0.52-1.25); POTASSIUM 3.7 mmol/L (3.4-5.0)
[2018-10-15 06:51] LABS: CALCIUM 8.8 mg/dL (8.4-10.2); CREATININE, serum 1.21 (0.52-1.25); POTASSIUM 3.6 mmol/L (3.4-5.0)
--- NOTE | 2018-10-15 07:00 | NUR ---
Bedside report received from GUS Galvez. Patient is currently sleeping. next BG check is 0730. Insulin gtt currently running at 11 units/hr. IVF rate reviewed at this time also. Care taken over.
--- NOTE | 2018-10-15 07:07 | NUR ---
Bedside report given to GUS Mills. All lines and medications reviewed. Transfer of care at this time.
[2018-10-15 08:53] LABS: CALCIUM 8.9 mg/dL (8.4-10.2); CREATININE, serum 1.23 (0.52-1.25); POTASSIUM 3.7 mmol/L (3.4-5.0)
--- NOTE | 2018-10-15 10:30 | NUR ---
Patient out of bed to use toilet. UA specimen sent to lab at this time. She chooses to sit in Recliner. TLC in Right IJ secured with more tape. Patient given call light and reviewed with her on how to use it. She verbalizes understanding. Will continue to monitor.
[2018-10-15 13:17] LABS: COLLECTION METHOD CLEAN CATCH
[2018-10-15 13:32] LABS: MUCOUS Present /lpf; PH 5 (5-8); URINE APPEARANCE Hazy; URINE BACTERIA None Seen /hpf; URINE BILIRUBIN Negative (NEGATIVE); URINE BLOOD Negative (NEGATIVE); URINE COLOR Yellow; URINE GLUCOSE 1+ (NEGATIVE); URINE KETONE Negative (NEGATIVE); URINE LEUKOCYTE ESTERASE Negative (NEGATIVE); URINE NITRATE Negative (NEGATIVE); URINE PROTEIN(semi-quant) Negative (NEGATIVE); URINE UROBILINOGEN Negative (NEGATIVE)
--- NOTE | 2018-10-15 13:50 | NUR ---
PHOENIX met with the patient to discuss a discharge plan. The pt lives alone in [place]. The pt has a cane she uses occasionally and she reports independence with ADLs. The pt's PCP is Dr. Duke. The pt reports she receives some medcations from Dr. Duke and also Eliza Kaplan. The pt may need a medication voucher upon discharge. The pt does have advanced directives in the EMR and appoints Osei Machuca or Yury Hoang as DPOA-HC. The pt plans to return home upon discharge and stated that Yury will provide transporation. There are no additional needs at this time. Yury Hoang Osei Machuca
--- NOTE | 2018-10-15 15:20 | NUR ---
PT ADMITTED TO MEDICAL FLOOR. PT A&OX4. NO C/O PAIN AT THIS TIME. STAND BY ASSISTANCE WHEN TRANSFERING. IV FLUIDS INFUSING WITHOUT ISSUE, IV SITE PATENT WITHOUT REDNESS OR SWELLING. NO NOTED N/V/D. ICU NURSE STATED PT HAVING LOW URINE OUTPUT AND THAT PROVIDER IS AWARE. VITALS OBTAINED AT THIS TIME. PT ON ROOM AIR. TELE ON READING NORMAL SINUS AT THIS TIME. PT ASSISTED TO BED. AND WANTING TO TAKE A NAP. NO ISSUES OR CONSERNS VOICED.
[2018-10-15 15:35] LABS: CALCIUM 8.5 mg/dL (8.4-10.2); CREATININE, serum 1.25 (0.52-1.25); POTASSIUM 4.8 mmol/L (3.4-5.0)
--- NOTE | 2018-10-15 18:31 | NUR ---
PT SITTING UP TO EAT SUPPER AT THIS TIME, LAID DOWN FOR A NAP PRIOR. HAS C/O CHILLINESS, GAVE WARM BLANKET AND AJUSTED AIR CONDITIONER TEMP. NO C/O PAIN. PLEASENT AND COOPERATIVE WITH CARES. PT RECIEVED INSULIN WITH MEAL. BLOOD GLUCOSE LEVEL CHECKED. NO ISSUES OR CONSERNS VOICED AT THIS TIME.
[2018-10-16 00:01] VITALS: BP 117/61; PULSE 69; TEMP 98.7
[2018-10-16 03:28] VITALS: BP 133/77; PULSE 69; TEMP 99
[2018-10-16 05:47] LABS: BASO % 0.4 % (0.0-2.0); EOS # 0.2 (0.0-0.7); GRAN # 5.2 (1.4-6.5); GRAN % 69.4 % (42.2-75.2); LYMPH # 1.3 (1.2-3.4); LYMPH % 17.7 % (20.0-51.0); MEAN CELL VOLUME 78 fl (80.0-100.0); MEAN CORPUSCULAR HGB CONC 31 g/dl (33.0-37.0); MONO # 0.8 (0.1-0.6); MONO % 10.1 % (1.7-9.3); PLATELET COUNT 126 K/mm3 (130-400); RED BLOOD COUNT 3.19 M/mm3 (4.10-5.30)
[2018-10-16 05:54] LABS: CALCIUM 8.3 mg/dL (8.4-10.2); CREATININE, serum 1.09 (0.52-1.25); MAGNESIUM 1.3 mg/dL (1.6-2.3)
[2018-10-16 06:05] LABS: HEMATOCRIT 24.9 % (37.0-47.0); HEMOGLOBIN 7.8 g/dl (12.5-16.0); MEAN CORPUSCULAR HEMOGLOBIN 24 pg (27.0-31.0)
[2018-10-16 07:13] VITALS: BP 140/69; PULSE 74; TEMP 98.8
--- NOTE | 2018-10-16 09:46 | NUR ---
Initial visit; Patient thanked for looking in on her though she was using telephone. Content Management Consultant will follow up another time.
[2018-10-16 12:25] VITALS: BP 141/77; PULSE 65; TEMP 98.9
--- NOTE | 2018-10-16 13:06 | NUR ---
Patient is sitting up in bed waiting on lunch. Did get up and take shower independently earlier in the morning, tolerated well. Denies having any pain. Respirations are even and nonlabored. Was observed ambulating in room independently. Gait is steady. Call light and personal itmems are within reach.
--- NOTE | 2018-10-16 14:30 | NUR ---
IJ discontinued per order. Dressing and sutures removed. Insertion site is free from signs of infection. Removed line per protocol. Pressure applied for 15 minutes and then covered with gauze and transparent dressing.
[2018-10-16 16:13] VITALS: BP 145/73; PULSE 73; TEMP 99.3
--- NOTE | 2018-10-16 19:39 | NUR ---
Patient resting in bed, personal items and call light within reach.
[2018-10-16 20:39] VITALS: BP 131/59; PULSE 72; TEMP 99.1
--- NOTE | 2018-10-16 21:00 | NUR ---
Initial shift assessment done- denies pain- but states having some itching to feet and would like some benadryl ordered-- will call Trish GRAINING OPERATOR for orders. Tele on- blood sugar tonight was 208- sliding scale given as ordered
[2018-10-17 00:26] VITALS: BP 106/49; PULSE 70; TEMP 98.5
[2018-10-17 04:30] VITALS: BP 136/75; PULSE 70; TEMP 98.6
--- NOTE | 2018-10-17 05:19 | NUR ---
Quiet night- states she slept well-states benadryl was effective for itching feet. Blood sugar this morning 94
[2018-10-17 07:58] LABS: BASO % 0.5 % (0.0-2.0); EOS # 0.1 (0.0-0.7); EOS % 1.7 % (0-4.0); GRAN % 71.1 % (42.2-75.2); LYMPH # 1.4 (1.2-3.4); LYMPH % 16.7 % (20.0-51.0); MEAN CELL VOLUME 78 fl (80.0-100.0); MEAN CORPUSCULAR HGB CONC 32 g/dl (33.0-37.0); MONO # 0.8 (0.1-0.6); MONO % 9.5 % (1.7-9.3); PLATELET COUNT 123 K/mm3 (130-400); RED BLOOD COUNT 3.84 M/mm3 (4.10-5.30); REDCELL DISTRIBUTION WIDTH-CV 16.9 % (11.5-14.5)
[2018-10-17 08:06] LABS: HEMATOCRIT 29.8 % (37.0-47.0); HEMOGLOBIN 9.4 g/dl (12.5-16.0); MEAN CORPUSCULAR HEMOGLOBIN 24 pg (27.0-31.0)
[2018-10-17 08:13] LABS: CALCIUM 9.3 mg/dL (8.4-10.2); CREATININE, serum 1.04 (0.52-1.25); POTASSIUM 5.3 mmol/L (3.4-5.0)
[2018-10-17 09:00] VITALS: BP 143/79; PULSE 72; TEMP 97.2
[2018-10-17] MEDS ORDERED: LANTUS100 U/ML SQ (09:12)
--- NOTE | 2018-10-17 09:21 | NUR ---
Patient is resting in bed, assisted with walking in halls per her request. Gait was steady, no assistance required. Denies having any pain. Ate 100% of breakfast. Respirations are even and nonlabored. Personal items and call light are within reach. Fresh water provided.
[2018-10-17] MEDS ORDERED: HUMALOG100 U/ML SQ (09:22)
--- NOTE | 2018-10-17 09:25 | NUR ---
SW attended clinical rounds. ST recommended outpatient speech therapy. Patient will discharge home today. No discharge needs.
--- NOTE | 2018-10-17 10:34 | NUR ---
Patient discharged at this time. Discharge instructions provided and patient verbalized understanding. Patient gathered belongings and dressed without assistance. Did ambulate to front entrance where she left in private vehicle.
== END 2018-10-17 10:35 | disposition home or self-care (01) | DRG 638 ==
LOC: COL.ER 10:16 → ICU 13:02 → MEDICAL 13:02 → ICU 13:03 → MEDICAL 10-15 15:00
PROVIDERS: Emergency Medicine; Physician Assistant; ADMIT Internal Medicine
PROC: 02HV33Z Insertion of Infusion Device into Superior Vena Cava, Percutaneous Approach (ICD-10-PCS; principal; 2018-10-14)
DX: E11.00 Type 2 diabetes mellitus with hyperosmolarity without nonketotic hyperglycemic-hyperosmolar coma (NKHHC) (principal); Z94.4 Liver transplant status; G93.40 Encephalopathy, unspecified; N28.9 Disorder of kidney and ureter, unspecified; I10 Essential (primary) hypertension; I48.91 Unspecified atrial fibrillation; E11.65 Type 2 diabetes mellitus with hyperglycemia; D64.9 Anemia, unspecified; Z95.818 Presence of other cardiac implants and grafts; Z79.4 Long term (current) use of insulin
CPT/HCPCS: 99223-AI; 99232-AI; 99233-AI; 99239; J1644; J1815; J3480; J7030; J7507

== ENCOUNTER 2018-11-08 13:04 | Day surgery (SDC) | payer MEDICAID ==
[~2018-11-08] VITALS: Ht 172.7 cm; Wt 72.0 kg
[~2018-11-08 13:04] MED LIST changes: +HUMALOG100 U/ML SQ
[2018-11-08 13:33] VITALS: BP 121/78; PULSE 75; TEMP 97.6
--- NOTE | 2018-11-08 14:55 | NUR ---
Attempts for IV access have been unsuccessful: 2 attempts this nurse, 2 attempts STEPHANE, 3 attempts Germain PEÑA. On 4th attempt using US 20 guage placed in right upper arm. Pt taken to procedure on cart.
[2018-11-08 15:30] VITALS: BP 154/48; PULSE 85; TEMP 97.8
--- NOTE | 2018-11-08 15:30 | NUR ---
Pt to GI bay 4 via cart from ENDO. Pt drowsy, but wake. Pt ambulates to recliner with stand by assistance. IV to right upper arm was DC'd due to infiltration while in ENDO suite. Pt c/o pain to infiltration site. Will make a warm moist heat pack for the area. Muffin and soda provided per pt reqest. Will continue to monitor. Call light within reach.
[2018-11-08 15:45] VITALS: BP 130/80; PULSE 80
--- NOTE | 2018-11-08 15:45 | NUR ---
Pt continues to rest. Warm moist heat pack to right upper arm in place. Pt voices relief from pain to this area. Pt continues to rest. Call light within reach.
[2018-11-08 16:00] VITALS: BP 143/86; PULSE 83
--- NOTE | 2018-11-08 16:00 | NUR ---
Pt continues to rest. Denies needs. Call light within reach.
[2018-11-08 16:15] VITALS: BP 142/82; PULSE 84
--- NOTE | 2018-11-08 16:15 | NUR ---
Discharge instructions reviewed. Pt voices understanding. IJ iv site discontinued with all parts intact. Pt up to dress. Call light within reach.
--- NOTE | 2018-11-08 16:30 | NUR ---
Pt escorted to private car via wheel chair. Pt accompanied home by her amos.
== END 2018-11-08 16:30 | disposition home or self-care (01) ==
LOC: SDCO 13:04
DX: K74.69 Other cirrhosis of liver (principal); I85.10 Secondary esophageal varices without bleeding; K29.30 Chronic superficial gastritis without bleeding; K59.00 Constipation, unspecified; I48.91 Unspecified atrial fibrillation; K76.6 Portal hypertension; M19.90 Unspecified osteoarthritis, unspecified site; D64.9 Anemia, unspecified
CPT/HCPCS: J2704

== ENCOUNTER 2018-12-08 07:08 | Day surgery (SDC) | payer MEDICAID ==
[~2018-12-08] VITALS: Ht 172.7 cm; Wt 69.0 kg
[2018-12-08 07:41] VITALS: BP 144/80; PULSE 60; TEMP 98.6
--- NOTE | 2018-12-08 08:06 | NUR ---
Em with [facility] called to initiate pts IV due to history of difficulty obtaining IV access. Lab also present to attempt to obtain ordered labs off the IV start. Unable to obtain labs from IV start. Lab successful at drawing at different site. IVF infusing to 22g in left hand. Pt tearful at this time. Voiced "I just hate getting stuck so many times". Pt given tissues and this nurse visited with pt to comfort her. TV turned on for distraction. Pt appears to feel better that IV is working. Asked "So this is good for my IV", pointing at her IV site with fluids infusing. Call light in reach. Pt denies other questions or concerns.
[2018-12-08 09:05] VITALS: BP 129/75; PULSE 62; TEMP 98.5
--- NOTE | 2018-12-08 09:05 | NUR ---
Pt returned via cart to bay 3. Pt drowsy, ambulated with assist to recliner in bay. VSS-see flowsheet. Given muffin and sprite zero per request. Denies needs or complaints. Call light in reach. Legs elevated in recliner.
[2018-12-08 09:20] VITALS: BP 139/82; PULSE 63
[2018-12-08 09:35] VITALS: BP 139/35; PULSE 64
--- NOTE | 2018-12-08 09:48 | NUR ---
Pt tolerated a muffin and drink. VS remain stable. Discharge teaching completed, verbalized understanding. Taken via wheelchair to private vehicle for dc home with family driving. Pt given dc instructions and thank you card upon dismissal. Coban dressing to IV removal site remains clean and intact.
== END 2018-12-08 09:50 | disposition home or self-care (01) ==
LOC: SDCO 07:08
DX: K74.60 Unspecified cirrhosis of liver (principal); I85.10 Secondary esophageal varices without bleeding; K76.6 Portal hypertension; K59.00 Constipation, unspecified; I48.91 Unspecified atrial fibrillation; D64.9 Anemia, unspecified; I10 Essential (primary) hypertension; G47.33 Obstructive sleep apnea (adult) (pediatric); I08.1 Rheumatic disorders of both mitral and tricuspid valves; E11.9 Type 2 diabetes mellitus without complications; D69.6 Thrombocytopenia, unspecified; Z90.710 Acquired absence of both cervix and uterus; Z79.4 Long term (current) use of insulin; Z79.82 Long term (current) use of aspirin; Z94.4 Liver transplant status
CPT/HCPCS: J2704

== ENCOUNTER → 2019-03-22 | Outpatient (CLI) | payer MEDICAID | LOC: COL.RAD 03-15 09:00 | DX: Z48.23 Encounter for aftercare following liver transplant (principal) ==

== ENCOUNTER → 2019-04-12 | Outpatient (CLI) | payer MEDICAID | LOC: COL.RAD 10:46 | DX: S12.9XXD Fracture of neck, unspecified, subsequent encounter (principal); M47.812 Spondylosis without myelopathy or radiculopathy, cervical region ==

== ENCOUNTER → 2019-05-10 | Outpatient (CLI) | payer MEDICAID | LOC: COL.RAD 10:06 | DX: S12.120D Other displaced dens fracture, subsequent encounter for fracture with routine healing (principal) ==

== ENCOUNTER 2019-11-30 22:04 | Emergency (ER) | payer MEDICAID ==
[~2019-11-30] VITALS: Ht 172.7 cm; Wt 64.5 kg
[2019-11-30 22:22] VITALS: TEMP 98.6
[2019-11-30 23:06] LABS: HEMOGLOBIN 10.1 g/dl (12.5-16.0); MEAN CELL VOLUME 85 fl (80.0-100.0); MEAN CORPUSCULAR HEMOGLOBIN 27 pg (27.0-31.0); MEAN CORPUSCULAR HGB CONC 32 g/dl (33.0-37.0); MEAN PLATELET VOLUME 11.8 fl (7.4-10.4); PLATELET COUNT 161 K/mm3 (130-400); RED BLOOD COUNT 3.69 M/mm3 (4.10-5.30); REDCELL DISTRIBUTION WIDTH-CV 14.2 % (11.5-14.5)
[2019-11-30 23:13] LABS: INR 1.2 (0.8-3.0); PROTHROMBIN TIME 13.5 SECONDS (9.7-12.8)
[2019-11-30 23:15] LABS: HEMATOCRIT 31.3 % (37.0-47.0)
[2019-11-30 23:16] LABS: PARTIAL THROMBOPLASTIN TIME 30.7 SECONDS (26.0-37.0)
[2019-11-30 23:22] LABS: ALANINE AMINOTRANSFERASE 22 U/L (4-34); ALBUMIN 3.2 gm/dL (3.5-5.0); ALKALINE PHOSPHATASE 204 U/L (50-136); ANION GAP 7 mmol/L (7-16); AST,SGOT 32 U/L (15-37); BILIRUBIN,TOTAL 1.7 mg/dL (0.0-1.0); BLOOD UREA NITROGEN 15 mg/dL (7-17); CALCIUM 8.4 mg/dL (8.4-10.2); CARBON DIOXIDE 22 mmol/L (22-30); CHLORIDE 99 mmol/L (98-107); CREATINE KINASE 49 U/L (30-135); CREATININE, serum 1.16 (0.52-1.25); GLUCOSE 262 mg/dL (74-106); LIPASE 221 U/L (23-300); POTASSIUM 3.7 mmol/L (3.4-5.0); SODIUM 128 mmol/L (137-145); TOTAL PROTEIN 7.3 gm/dL (6.4-8.2)
[2019-11-30] MEDS ORDERED: ULTRAM 50MG TAB50 MG PO (23:38)
[2019-11-30 23:42] LABS: TROPONIN-I < 0.012 ng/mL (0.000-0.035)
[2019-12-01 00:16] LABS: BAND 5 % (0-10); LYMPHOCYTE 5 % (20.0-51.0); NEUTROPHILS 87 % (42.0-75.2)
[2019-12-01 00:17] LABS: HYPOCHROMIA 2+; PLATELET ESTIMATE NORMAL (NORMAL)
[2019-12-01 02:53] LABS: PERITONEAL -POLYMORPHONUCLEAR 58.7 % (0-25); PERITONEAL FLUID RBC 0 /mm3 (0-0)
[2019-12-01 02:57] LABS: COLLECTION METHOD CLEAN CATCH
[2019-12-01 03:02] LABS: PH 6 (5-8); SQUAMOUS EPITHELIAL 0-2 /hpf; URINE APPEARANCE Clear; URINE BACTERIA None Seen /hpf; URINE BILIRUBIN Negative (NEGATIVE); URINE BLOOD Negative (NEGATIVE); URINE COLOR Yellow; URINE GLUCOSE Negative (NEGATIVE); URINE KETONE Negative (NEGATIVE); URINE LEUKOCYTE ESTERASE Negative (NEGATIVE); URINE NITRATE Negative (NEGATIVE); URINE PROTEIN(semi-quant) Negative (NEGATIVE); URINE RBC 0-2 /hpf; URINE UROBILINOGEN Negative (NEGATIVE)
[2019-12-01 03:39] VITALS: BP 103/74; PULSE 90
== END 2019-12-01 03:59 | disposition short-term general hospital (02) ==
LOC: COL.ER 22:04
PROVIDERS: Emergency Medicine
DX: I81 Portal vein thrombosis (principal); R18.8 Other ascites; R10.84 Generalized abdominal pain; E11.9 Type 2 diabetes mellitus without complications; K59.00 Constipation, unspecified; I48.91 Unspecified atrial fibrillation; I10 Essential (primary) hypertension; D69.6 Thrombocytopenia, unspecified; Z94.4 Liver transplant status; Z95.818 Presence of other cardiac implants and grafts; Z79.4 Long term (current) use of insulin; Z90.710 Acquired absence of both cervix and uterus
CPT/HCPCS: J0696; J1644; J2270; J2405; Q9967

== ENCOUNTER 2020-01-25 06:34 | Day surgery (SDC) | payer MEDICAID ==
[~2020-01-25] VITALS: Ht 172.7 cm; Wt 59.1 kg
[~2020-01-25 06:34] MED LIST changes: -MYFORTIC180 MG PO; +MYFORTIC360 MG PO; +ULTRAM 50MG TAB50 MG PO
[2020-01-25] MEDS ORDERED: ALDACTONE 100M100 MG PO (07:13)
[2020-01-25] MEDS ORDERED: LASIX 20MG TABL20 MG PO (07:15)
[2020-01-25] MEDS ORDERED: LACTULOSE10 GM/153 PO (07:17)
[2020-01-25 08:30] VITALS: BP 130/67; PULSE 63; TEMP 98.2
--- NOTE | 2020-01-25 08:30 | NUR ---
Pt to GI bay 5 via cart from [place]. Pt awake and alert. Pt ambulates to recliner with stand by assistance. Warm blanket provided. Blood sugar is 417. notified. He would like her PCP informed of the high blood sugars, but no orders given at this time. Pt request muffin and juice. Call light within reach.
[2020-01-25 08:45] VITALS: BP 134/68; PULSE 64
--- NOTE | 2020-01-25 08:45 | NUR ---
Pt continues to rest. Denies needs. Call light within reach.
[2020-01-25 09:00] VITALS: BP 137/72; PULSE 66
--- NOTE | 2020-01-25 09:00 | NUR ---
Pt continues to rest. Denies needs. Juanpablo WEBER at 's office (pt PCP) notified of high blood sugars. Juanpablo said to have pt call her this afternoon after she gets home. No new orders at this time.
[2020-01-25 09:08] VITALS: BP 125/63; PULSE 60; TEMP 98
[2020-01-25 09:15] VITALS: BP 126/66; PULSE 66
--- NOTE | 2020-01-25 09:20 | NUR ---
Discharge instructions provided. Pt voices understanding. IV site discontinued with all parts intact. Pt up to dress. Call light within reach.
--- NOTE | 2020-01-25 09:30 | NUR ---
Pt escorted to private car via wheel chair. Pt accompanied home by her amos.
== END 2020-01-25 09:30 | disposition home or self-care (01) ==
LOC: SDCO 06:34
DX: K74.60 Unspecified cirrhosis of liver (principal); I85.10 Secondary esophageal varices without bleeding; K22.10 Ulcer of esophagus without bleeding; M19.90 Unspecified osteoarthritis, unspecified site; I48.91 Unspecified atrial fibrillation; D64.9 Anemia, unspecified; K76.6 Portal hypertension; G47.33 Obstructive sleep apnea (adult) (pediatric); E11.9 Type 2 diabetes mellitus without complications; D69.6 Thrombocytopenia, unspecified; Z79.82 Long term (current) use of aspirin; Z87.891 Personal history of nicotine dependence; Z20.828 Contact with and (suspected) exposure to other viral communicable diseases
CPT/HCPCS: J1815; J2704; J7030

== ENCOUNTER 2020-07-25 07:24 | Day surgery (SDC) | payer MEDICAID ==
[~2020-07-25] VITALS: Ht 172.7 cm; Wt 64.1 kg
[~2020-07-25 07:24] MED LIST changes: +ASPIRIN 81M81 MG/TA2 PO; +ENULOSE10 GM/151 PO; +ERGOCALCIFER50000 IU PO; +HYDROMET PO; +INSULIN LI100 UNIT/2 SQ; +LACTULOSE10 GM/153 PO; +LASIX 20MG TABL20 MG PO; +PRILOSEC 20MG20 MG PO; +XANAX 0.5MG0.5 MG PO
[2020-07-25] MEDS ORDERED: NEURONTIN300 MG/CAP PO (07:54)
[2020-07-25] MEDS ORDERED: CIPRO 500MG TA500 MG PO (07:55)
[2020-07-25] MEDS ORDERED: TAMBOCOR 1100 MG/TAB PO (07:58)
[2020-07-25] MEDS ORDERED: ULTRAM 50MG TAB50 MG PO (08:01)
[2020-07-25] MEDS ORDERED: VITAMIN A10k PO (08:02)
[2020-07-25] MEDS ORDERED: XIFAXAN550 MG PO (08:03)
[2020-07-25 08:52] VITALS: BP 147/77; PULSE 59; TEMP 97
[2020-07-25 09:00] LABS: CALCIUM 9.5 mg/dL (8.4-10.2); CREATININE, serum 1.92 (0.52-1.25); POTASSIUM 5.1 mmol/L (3.4-5.0)
[2020-07-25 09:30] VITALS: BP 139/69; PULSE 59; TEMP 97.5
--- NOTE | 2020-07-25 09:30 | NUR ---
The patient arrived back to [facility] from the endoscopy suite at this time. The patient appears alert and oriented and ambulates from the cart to the recliner in her room with the stand by assistance of two nurses and appeared to tolerate the activity well. Post procedure vital signs were started at this time. The patient agrees to try some cranberry juice and a muffin at this time. Call light is within reach. Will continue to monitor the patient.
[2020-07-25 09:45] VITALS: BP 161/81; PULSE 63
--- NOTE | 2020-07-25 09:45 | NUR ---
The patient appears to be tolerating the food and drink well. Vital signs appear stable. The patient denies any pain or nausea. Will continue to monitor the patient.
[2020-07-25 10:00] VITALS: BP 153/70; PULSE 62
--- NOTE | 2020-07-25 10:00 | NUR ---
The patient has spoke with Dr. Holliday about the findings of her procedure and now voices a desire to be discharged home. The patient's IV to her right forearm was removed and a pressure dressing was applied. Discharge instructions were reviewed and she verbalized understanding and has no questions for the nurse at this time. The nurse instructed the patient to get dressed and notify the staff when she is ready to be escorted out.
--- NOTE | 2020-07-25 10:15 | NUR ---
The patient was escorted out via wheelchair to a private vehicle by GUS Alcocer. The patinet's belongings and discharge paperwork were sent with her. The patient's neice is present to drive her home.
[2020-09-12] MEDS ORDERED: SODIUM BICARBO650 MG PO (14:54)
[2020-12-19] MEDS ORDERED: BENADRYL25 M2 PO (06:22)
[2020-12-19] MEDS ORDERED: CIPRO 500MG TA500 MG PO (06:23)
[2020-12-19] MEDS ORDERED: PROTONIX 40MG T40 MG PO (06:25)
== END 2020-07-25 10:15 | disposition home or self-care (01) ==
LOC: SDCO 07:24
PROVIDERS: Internal Medicine Gastroenterology
DX: K70.30 Alcoholic cirrhosis of liver without ascites (principal); I85.10 Secondary esophageal varices without bleeding; K29.30 Chronic superficial gastritis without bleeding; I10 Essential (primary) hypertension; I48.91 Unspecified atrial fibrillation; G47.33 Obstructive sleep apnea (adult) (pediatric); K21.9 Gastro-esophageal reflux disease without esophagitis; D64.9 Anemia, unspecified; E11.9 Type 2 diabetes mellitus without complications; K76.6 Portal hypertension; Z79.4 Long term (current) use of insulin
CPT/HCPCS: J2704; J7030

== ENCOUNTER → 2020-11-26 | Outpatient (CLI) | payer MEDICAID ==
[~2020-11-26] MED LIST changes: +BENADRYL25 M2 PO; +CIPRO 500MG TA500 MG PO; +NEURONTIN300 MG/CAP PO; +SODIUM BICARBO650 MG PO; +VITAMIN A10k PO; +XIFAXAN550 MG PO
== END ==
LOC: COL.VAS 13:46
DX: N18.4 Chronic kidney disease, stage 4 (severe) (principal); K74.60 Unspecified cirrhosis of liver

== ENCOUNTER 2021-01-13 06:28 | Emergency (ER) | payer MEDICAID ==
[~2021-01-13] VITALS: Ht 172.7 cm; Wt 64.5 kg
[2021-01-13 06:36] VITALS: TEMP 98.7
[2021-01-13 07:18] LABS: ALBUMIN 4.5 gm/dL (3.5-5.0); BILIRUBIN,TOTAL 3.2 mg/dL (0.0-1.0); CALCIUM 9.8 mg/dL (8.4-10.2); CREATININE, serum 4.38 (0.52-1.25); POTASSIUM 4.4 mmol/L (3.4-5.0); TOTAL PROTEIN 7.5 gm/dL (6.4-8.2)
[2021-01-13 07:23] LABS: BASO % 0.4 % (0.0-2.0); EOS # 0.1 (0.0-0.7); EOS % 1.1 % (0-4.0); GRAN # 8.6 (1.4-6.5); GRAN % 86.1 % (42.2-75.2); LYMPH # 0.7 (1.2-3.4); LYMPH % 6.7 % (20.0-51.0); MEAN CELL VOLUME 84 fl (80.0-100.0); MEAN CORPUSCULAR HGB CONC 32 g/dl (33.0-37.0); MONO # 0.5 (0.1-0.6); MONO % 5.2 % (1.7-9.3); PLATELET COUNT 79 K/mm3 (130-400); RED BLOOD COUNT 3.21 M/mm3 (4.10-5.30); REDCELL DISTRIBUTION WIDTH-CV 17.1 % (11.5-14.5)
[2021-01-13 07:29] LABS: HEMATOCRIT 27.1 % (37.0-47.0); HEMOGLOBIN 8.6 g/dl (12.5-16.0); MEAN CORPUSCULAR HEMOGLOBIN 27 pg (27.0-31.0)
[2021-01-13 07:31] LABS: TROPONIN-I 0.044 ng/mL (0.000-0.035)
[2021-01-13 07:35] LABS: INR 1.5 (0.8-3.0); PROTHROMBIN TIME 16.4 SECONDS (9.7-12.8)
[2021-01-13 11:35] VITALS: BP 169/97; PULSE 79
== END 2021-01-13 11:37 | disposition home or self-care (01) ==
LOC: COL.ER 06:28
PROVIDERS: Personal Emergency Response Attendant
DX: R18.8 Other ascites (principal); D64.9 Anemia, unspecified; J96.10 Chronic respiratory failure, unspecified whether with hypoxia or hypercapnia; I12.9 Hypertensive chronic kidney disease with stage 1 through stage 4 chronic kidney disease, or unspecified chronic kidney disease; N18.9 Chronic kidney disease, unspecified; E11.22 Type 2 diabetes mellitus with diabetic chronic kidney disease; Z90.710 Acquired absence of both cervix and uterus; Z87.891 Personal history of nicotine dependence; Z79.4 Long term (current) use of insulin

== ENCOUNTER 2021-01-23 09:45 | Emergency (ER) | payer MEDICAID ==
[~2021-01-23] VITALS: Ht 172.7 cm; Wt 68.2 kg
[2021-01-23 09:57] VITALS: TEMP 98.1
[2021-01-23 10:36] LABS: MEAN CELL VOLUME 84 fl (80.0-100.0); MEAN CORPUSCULAR HGB CONC 32 g/dl (33.0-37.0); RED BLOOD COUNT 3.32 M/mm3 (4.10-5.30); REDCELL DISTRIBUTION WIDTH-CV 17.2 % (11.5-14.5)
[2021-01-23 10:38] LABS: HEMOGLOBIN 8.9 g/dl (12.5-16.0); MEAN CORPUSCULAR HEMOGLOBIN 27 pg (27.0-31.0)
[2021-01-23 10:40] LABS: PLATELET COUNT 42 K/mm3 (130-400)
[2021-01-23 10:49] LABS: LACTIC ACID 3.9 mmol/L (0.5-2.0)
[2021-01-23 10:55] LABS: ALBUMIN 4.5 gm/dL (3.4-4.8); BILIRUBIN,TOTAL 2.9 mg/dL (0.2-1.2); C-REACTIVE PROTEIN 0.8 mg/dL (0.00-0.50); CALCIUM 10.2 mg/dL (8.4-10.2); CREATININE, serum 5.94 mg/dL (0.57-1.11); POTASSIUM 5.5 mmol/L (3.5-4.5); TOTAL PROTEIN 7.7 gm/dL (6.2-8.1)
[2021-01-23 11:00] LABS: BAND 10 % (0-10); LYMPHOCYTE 3 % (20.0-51.0); NEUTROPHILS 87 % (42.0-75.2)
[2021-01-23 11:01] LABS: SCHISTOCYTES 1+; TARGET CELLS 1+
[2021-01-23 11:03] LABS: HYPOCHROMIA 2+; PLATELET ESTIMATE DECREASED (NORMAL)
[2021-01-23 11:05] LABS: COLLECTION METHOD CLEAN CATCH
[2021-01-23 11:27] LABS: PH 5 (5-8); SQUAMOUS EPITHELIAL None Seen /hpf; URINE APPEARANCE Cloudy; URINE BACTERIA Rare /hpf; URINE BILIRUBIN Negative (NEGATIVE); URINE BLOOD Negative (NEGATIVE); URINE COLOR Yellow; URINE GLUCOSE 3+ (NEGATIVE); URINE KETONE Negative (NEGATIVE); URINE LEUKOCYTE ESTERASE 2+ (NEGATIVE); URINE NITRATE Negative (NEGATIVE); URINE PROTEIN(semi-quant) Negative (NEGATIVE); URINE UROBILINOGEN Negative (NEGATIVE)
[2021-01-23 11:43] LABS: INR 1.7 (0.8-3.0); PROTHROMBIN TIME 18.7 SECONDS (9.7-12.8)
[2021-01-24 00:45] VITALS: BP 176/78; PULSE 80
== END 2021-01-24 00:44 | disposition short-term general hospital (02) ==
LOC: COL.ER 09:45
PROVIDERS: Nurse Practitioner Primary Care
DX: I12.9 Hypertensive chronic kidney disease with stage 1 through stage 4 chronic kidney disease, or unspecified chronic kidney disease (principal); E11.22 Type 2 diabetes mellitus with diabetic chronic kidney disease; E11.10 Type 2 diabetes mellitus with ketoacidosis without coma; N17.9 Acute kidney failure, unspecified; K72.90 Hepatic failure, unspecified without coma; N18.9 Chronic kidney disease, unspecified; I48.91 Unspecified atrial fibrillation; Z79.4 Long term (current) use of insulin; Z20.822 Contact with and (suspected) exposure to COVID-19; Z79.899 Other long term (current) drug therapy
CPT/HCPCS: J1630; J1815; J2060; J2543; J7120; P9047